=== PATIENT | female | born 1990 | race Caucasian/White ===

== ENCOUNTER 2022-08-30 21:48 | Emergency (ER) | payer SELFPAY ==
[~2022-08-30] VITALS: Ht 165.1 cm; Wt 63.5 kg
[2022-08-30 22:00] VITALS: BP 125/75
--- NOTE | 2022-08-30 22:00 | NUR ---
RT ASSESSING PT
[2022-08-30] MEDS ORDERED: ALBUTEROL SULFATE/IPRATROPIU 3 ML SOL IH ONE ×2 (22:05)
[2022-08-30] MEDS ORDERED: methylPREDNISolone SS 125 MG/2 ML VIAL IM ONE (22:05)
--- NOTE | 2022-08-30 22:48 | NUR ---
PATIENT MEDICATED PER ORDERS TOLERATED WELL
--- NOTE | 2022-08-30 23:17 | NUR ---
UABLE TO PROVIDE URINE AT THIS TIME,
--- NOTE | 2022-08-30 23:17 | NUR ---
MAXI PACE ASSESSING PATIENT.
[2022-08-30] MEDS ORDERED: [UNRECOGNIZED DRUG - OTHER] (23:25)
[2022-08-30] MEDS ORDERED: PRON INH (23:25)
[2022-08-30] MEDS ORDERED: PRED20TA5 PO (23:25)
[2022-08-30] MEDS ORDERED: NEBU1EAC30 MC (23:25)
[2022-08-30] MEDS ORDERED: ALBU0.0912 INH (23:25)
[2022-08-30] MEDS ORDERED: BENZ200C4 PO (23:26)
--- NOTE | 2022-08-30 23:40 | NUR ---
Patient discharged with v/s stable. Written and verbal after care instructions given and explained. Patient alert, oriented and verbalized understanding of instructions. Ambulatory with steady gait. All questions addressed prior to discharge. ID band removed. Patient advised to follow up with PMD. Rx of PROVENTIL HFA BENZONATATE NEBULIZER PREDNISONE given.
== END 2022-08-30 23:40 | disposition home or self-care (01) ==
LOC: MED 21:48
DX: J45.901 Unspecified asthma with (acute) exacerbation (principal)
CPT/HCPCS: 71045; 94640; 96372; 99283; J2930